=== PATIENT | female | born 1960 | race Caucasian/White ===

== ENCOUNTER 2023-06-17 08:57 | Emergency (ER) | payer OTHER, SELFPAY ==
--- NOTE | ~2023-06-17 | XR_ITS ---
[id number] DATE: 06/17/2023 09:49 INDICATION: Right lateral rib pain after a fall yesterday TECHNIQUE: PA chest. 3 views of the right ribs. COMPARISON: None FINDINGS: There is minimally displaced lateral right eighth rib fracture which appears recent. No oth er rib fractures are noted. Normal heart size. No hilar or mediastinal enlargement. No pulmonary infiltrate or consolidation, ple ural effusion or pulmonary vascular congestion or pneumothorax. Degenerative spurring of the thoracic and lumbar spine. IMPRESSION: Minimally displaced lateral right eighth rib fracture; no active cardiopulmonary disease, pleural effusion or pneumothorax Reviewed, dictated and finalized at [facility]. Reviewed, dictated and finalized at [facility]. IMPRESSION: Minimally displaced lateral right eighth rib fracture; no active ca rdiopulmonary disease, pleural effusion or pneumothorax
[2023-06-17 09:08] VITALS: BP 142/76; PULSE 69; RESP 16; TEMP 37.2; O2SAT 99
[2023-06-17 09:09] VITALS: BP 142/76; PULSE 69; RESP 16; TEMP 37.2; O2SAT 99
--- NOTE | 2023-06-17 09:41 | ED.GENADULT ---
HPI - General Adult General Chief complaint: Unspecified Stated complaint: rib pain Source: patient Mode of arrival: ambulatory Limitations: no limitations History of Present Illness HPI narrative: Pt presents for evaluation of a right chest wall injury. She states she was working outdoors yesterday when she tripped and fell. She hit her right ribs on the motor of a weedwacker. Since that time she has noted 10/10 pain in right anterolateral ribs. She denies SOB. She has tried taking Tylenol for her symptoms. Tylenol simply made her fall asleep. She does not smoke. No other injuries from the fall. No additional complaints or concerns. Related Data Allergies Allergy/AdvReac Type Severity Reaction Status Date / Time NKDA Allergy Unknown Unknown Uncoded 06/17/23 09:08 Review of Systems Review of Systems: CONSTITUTIONAL: Denies fever, chills, or sweats. EYES: Denies visual changes, redness, or discharge. ENT: Denies rhinorrhea, congestion, sore throat, or otalgia. CARDIOVASCULAR: Denies chest pain, palpitations, or edema. RESPIRATORY: Denies cough or dyspnea. GASTROINTESTINAL: Denies abdominal pain, nausea, vomiting, or diarrhea. GENITOURINARY: Denies dysuria or hematuria. SKIN: Denies rash or itching. MUSCULOSKELETAL:Reports right anterolateral rib pain NEUROLOGIC: Denies headache, numbness, dizziness, or weakness. PSYCHIATRIC: Denies anxiety or depression. PMFSH Past Medical History Medical History Anxiety Surgical History Surgical History Hx of total hysterectomy Family History Family History Mother Hypertension Social History Social History Smoking status: Smoker, status unknown Second hand tobacco smoke exposure: Yes Alcohol intake: never Substance use: never Substance use type: does not use Living arrangements: alone Occupation/Education: occupation Gender identity (if verbalized by the patient): Female Spiritual care concerns: No Exam Narrative: GENERAL: Well-appearing, well-nourished, and in no acute distress. HEAD: Normocephalic, atraumatic. EYES: PERRLA and EOMI. ENT: Nares clear, no rhinorrhea or epistaxis. Mucous membranes moist. Oropharynx without tonsillar hypertrophy exudate or other lesions. Bilateral TMs pearly dubon nonbulging NECK: Supple. No adenopathy or masses. No carotid bruits or JVD CHEST: Clear to auscultation. No respiratory distress. No wheezes rales or rhonchi. There is tenderness over right anterolateral ribs. No crepitus HEART: Regular rate and rhythm. No murmur heard. Normal peripheral pulses. ABDOMEN: Soft, nontender, nondistended, normal active bowel sounds. EXTREMITIES: Normal range of motion. No edema. SKIN: Warm, dry, no rash. NEURO: No focal deficits. Alert and oriented x3. PSYCH: Normal mood and affect. Course Course Emergency Course: This is a 62-year-old female who presented for evaluation of right anterolateral rib pain following a fall yesterday. She has evidence of a rib fracture on the right. I recommended prescription for analgesics, which she declined. She indicates she will only take [id number] medications. Advised on pulmonary toilet. Provided with incentive spirometer. Follow up with primary provider. Go to ER for worsening symptoms. Pt in agreement with plan of care. Level of Care: Express Care Visit Vital Signs Vital signs: Vital Signs Temperature 37.2 C 06/17/23 09:08 Pulse Rate 69 06/17/23 09:08 Respiratory Rate 16 06/17/23 09:08 Blood Pressure 142/76 H 06/17/23 09:08 Pulse Oximetry 99 06/17/23 09:08 Oxygen Delivery Room Air 06/17/23 09:08 Temperature 37.2 C 06/17/23 09:09 Pulse Rate 69 06/17/23 09:09 Respiratory Rate 16
== END 2023-06-17 10:20 | disposition home or self-care (01) ==
PROVIDERS: Emergency Provider Nurse Practitioner; PCP Family Medicine Adolescent Medicine
DX: S22.31XA Fracture of one rib, right side, initial encounter for closed fracture (principal); W01.198A Fall on same level from slipping, tripping and stumbling with subsequent striking against other object, initial encounter
CPT/HCPCS: 71101; 99213; G0463